=== PATIENT | male | born 1960 | race Two or more races ===

== ENCOUNTER 2017-05-08 06:28 | Inpatient (IN) | payer OTHER ==
[~2017-05-08] VITALS: Ht 177.8 cm; Wt 95.3 kg
[2017-05-08 08:00] VITALS: BP 126/72
--- NOTE | 2017-05-08 08:00 | NUR ---
MS 2 RN AM ADMITTING NOTES ADMITTED PT FROM DAY SX AND RECEIVED REPORT FROM DEON,A P SUPERVISOR.PT IS ALERT AND ORIENTED X4.VERBALLY RESPONSIVE IN [place] AND [place].AMBULATES AD JACLYN.WITH SKIN INTACT.DENIES ANY SOB IN ROOM AIR AND PAIN.IV H/L INTACT TO LT HAND G 18.INSTRUCTED TO REMAIN NPO FOR PENDING SX :LT TOTAL KNEE ARTHROPLASTY BY DR BLUM.ALL CONSENTS HAS BEEN SIGNED.FAMILY AT BEDSIDE.CALL LIGHT PLACED WITHIN REACH.
[2017-05-08] MEDS ORDERED: TRANEXAMIC ACID 1,500 MG in IV NS 0.9% 50 ML IV ONE (08:30)
[2017-05-08] MEDS ORDERED: BACITRACIN 50000 UNITS/VIAL ONE (10:57)
[2017-05-08] MEDS ORDERED: BUPIVACAINE 0.25% 75 MG/30 ML VIAL ONE ×2 (10:58→13:59)
[2017-05-08] MEDS ORDERED: MORPHINE SULFATE INJ 4 MG/ML DISP.SYRIN ONE ×2 (10:58→16:15)
[2017-05-08] MEDS ORDERED: KETOROLAC TROMETHAMINE INJ 30 MG/ML VIAL ONE ×2 (10:58→16:00)
--- NOTE | 2017-05-08 11:38 | NUR ---
PT BROUGHT TO O.R FOR LT TOTAL KNEE ARTHROPLASTY WITH STABLE V/S.DENIES ANY PAIN OR DISTRESS.
[2017-05-08] MEDS ORDERED: CELECOXIB 100 MG CAPSULE ONE (11:49)
[2017-05-08] MEDS ORDERED: ACETAMINOPHEN 325 MG TABLET ONE (11:49)
[2017-05-08] MEDS ORDERED: oxyCODONE HCL SR 10MG TAB.SR.12H PO ONE (12:00)
[2017-05-08] MEDS ORDERED: oxyCODONE IR immediate release 5 MG ONE (15:56)
[2017-05-08] MEDS ORDERED: MIDAZOLAM HCL 2 MG/2ML VIAL ONE (16:21)
[2017-05-08] MEDS ORDERED: ASPIRIN 600 MG/SUPP.RECT RC ONE (16:30)
[2017-05-08] MEDS ORDERED: oxyCODONE IR immediate release 5 MG PO ONE (16:30)
[2017-05-08] MEDS ORDERED: KETOROLAC TROMETHAMINE INJ 30 MG/ML VIAL IV ONE (16:30)
--- NOTE | 2017-05-08 17:00 | NUR ---
RN MS NOTES PATIENT BACK ON UNIT IN STABLE CONDITION, AWAKE ALERT AND VERBALLY RESPONSIVE, RESPIRATIONS EVEN AND UNLABORED, OLMOS CATHETER INTACT AND DRAINING WELL. LEFT LEG IMMOBILIZER INTACT, DRESSING IS DRY, DVT PUMPS IN PLACE. IV TO LEFT HAND INTACT AND PATENT, NO REDNESS , NO INFILTRATION. IVF FLUIDS RUNNING ORDERED. SAFETY MEASURES IN PLACE, CALL LIGHT KEPT WITH REACH , FAMILY AT BEDSIDE.
[2017-05-08] MEDS ORDERED: BISACODYL SUPP (10 MG) 10 MG/SUPP.RECT SUPP.RECT RC PRN (17:30)
[2017-05-08] MEDS ORDERED: HYDROMORPHONE 1 MG/1 ML DISP.SYRIN IV PRN (17:30)
[2017-05-08] MEDS ORDERED: ZOLPIDEM TARTRATE 5 MG TABLET PO PRN (17:30)
[2017-05-08] MEDS ORDERED: DOCUSATE SODIUM 100 MG CAPSULE PO PRN (17:30)
[2017-05-08] MEDS ORDERED: ACETAMINOPHEN 325 MG TABLET PO PRN (17:30)
--- NOTE | 2017-05-08 17:30 | NUR ---
RN NOTES. PATIENT ARRIVED TO UNIT FROM OR S/P LEFT TOTAL KNEE ARTHROPLASTY WITH STABLE VITAL SIGNS WITHIN NORMAL LIMITS, WITH LEFT LOWER EXTREMITY IMMOBILIZER AND DVT PUMPS IN PLACE, F/C INTACT DRAINING WELL, URINE YELLOW, THE FOLLOWING MEDICATIONS WERE ADMINISTERED IN OR TRANEXAMIC ACID IV,OXYCONTIN 10MG, TORADOL 30MG,OXYCODONE 5MG.LEFT HAND 18 GAUGE IV INTACT,IVF RUNNING ORDERED,NO REDNESS OR INFILTRATION PRESENT TO SITE, SAFETY MEASURES IN PLACE, REORIENTED TO ROOM WITH CALL LIGHT KEPT WITHIN REACH.
--- NOTE | 2017-05-08 18:00 | NUR ---
PATIENT IS AWAKE ALERT AND EATING WITH NO DIFFICULTIES.
[2017-05-08] MEDS: IV D5/0.45 NACL 1,000 ML IV PRN (18:56)
[2017-05-08] MEDS: HYDROMORPHONE INJ 2 MG/ML DISP.SYRIN IV PRN (18:59)
--- NOTE | 2017-05-08 19:00 | NUR ---
RN NOTES RECEIVE PT IN BED A/O X3, NO S/S OF DISTRESS, STABLE, SAFETY MEASURES IN PLACE, CALL LIGHT WITHIN REACH, WILL CONTINUE TO MONITOR.
--- NOTE | 2017-05-08 19:04 | NUR ---
RN MS CLOSING NOTES. PATIENT AWAKE ALERT VERBALLY RESPONSIVE, BREATHING EVEN AND UNLABORED, VITAL SIGNS WNL, EGGCRATE HEEL PROTECTORS INTACT, DVT PUMPS INTACT, IVF FLOWING WELL,PATIENT ATE WELL 100% WITH NO COMPLICATIONS, OLMOS CATHETER INTACT AND DRAINING WELL, URINE YELLOW, SAFETY MEASURES IN PLACE , CALL LIGHT KEPT WITHIN REACH.
[2017-05-08 20:00] VITALS: BP 113/67
[2017-05-08] MEDS: CEFAZOLIN SODIUM 1 GM in IV SODIUM CHLORIDE 0.9% 50 ML IV SCH (21:34)
[2017-05-09] MEDS: KETOROLAC TROMETHAMINE INJ 30 MG/ML VIAL IV SCH ×5 (00:08→22:41)
[2017-05-09] MEDS: ONDANSETRON HCL/PF 4 MG/2 ML VIAL IVP SCH ×4 (00:08→16:03)
[2017-05-09] MEDS: CEFAZOLIN SODIUM 1 GM in IV SODIUM CHLORIDE 0.9% 50 ML IV SCH (04:17)
[2017-05-09] MEDS: IV D5/0.45 NACL 1,000 ML IV PRN ×2 (06:07→18:41)
--- NOTE | 2017-05-09 06:32 | NUR ---
MS RN NOTES PT ASLEEP COMFORTABLY IN BED AND EASILY AWAKEN HEAD OF BED ELEVATED FOR BETTER LUNG EXPANSION AND GOOD CIRCULATION. TOLERATING ROOM AIR 98% NOT IN RESPIRATORY DISTRESS. . NO COMPLAINS OF PAIN. STABLE CONDITION. HEEL PROTECTOR INTACT.F/C DRAINING YELLOW VIA GRAVITY WITH NO SEDIMENTS NO HEMATURIA NO CLOUDINESS. ASSISTED REPOSITION Q2H PRN. AFEBRILE. NO ACUTE CHANGES THROUGHOUT THE SHIFT. PT KEPT CLEAN AND DRY AND COMFORT. NURSING CARE RENDERED. NEEDS ATTENDED AND ANTICIPATED. GOOD SKIN CARE PROVIDED. ON LOW BED TO ENSURE SAFETY, CALL LIGHT WITHIN REACH, WILL ENDORSE TO THE NEXT SHIFT CONTINUE PLAN OF CARE
[2017-05-09 07:03] LABS: BASOPHILS # (AUTO) 0.1 /CMM (0.0-0.2); BASOPHILS % (AUTO) 0.6 % (0.0-2.0); EOSINOPHILS % (AUTO) 0.1 % (0.0-6.0); HEMATOCRIT 35 % (39-51); HEMOGLOBIN 12.1 g/dL (13.5-17.5); LYMPHOCYTES # (AUTO) 0.9 /CMM (0.8-4.8); LYMPHOCYTES % (AUTO) 10.7 % (20.0-44.0); MEAN CORPUSCULAR HGB CONC 35 g/dl (31.0-36.0); MEAN CORPUSCULAR VOLUME 92 fL (80-96); MONOCYTES # (AUTO) 0.5 /CMM (0.1-1.30); MONOCYTES % (AUTO) 5.9 % (2.0-12.0); NEUTROPHILS # (AUTO) 7.3 /CMM (1.8-8.9); NEUTROPHILS % (AUTO) 82.7 % (43.0-81.0); PLATELET COUNT (AUTO) 153 /CMM (150-450); RED BLOOD CELL COUNT(AUTO) 3.79 MIL/uL (4.5-6.0); WHITE BLOOD COUNT (AUTO) 8.9 K/uL (4.3-11.0)
--- NOTE | 2017-05-09 07:26 | NUR ---
MS RN OPENING NOTES RECEIVED PATIENT IN STABLE CONDITION. IN NO APPARENT DISTRESS. BEDSIDE RAILS ARE UPX2. BED IS LOCKED AND LOWERED. CALL LIGHT IS WITHIN REACH. IV LINE IS INTACT AND PATENT. PATIENT IS RESTING IN BED. WILL CONTINUE TO MONITOR.
[2017-05-09 08:00] VITALS: BP 116/70
[2017-05-09 08:02] LABS: CALCIUM, SERUM 7.2 mg/dL (8.5-10.1); POTASSIUM 3.9 mmol/L (3.5-5.1)
[2017-05-09] MEDS: CELECOXIB 100 MG CAPSULE PO SCH ×2 (08:18→20:29)
[2017-05-09] MEDS: ASPIRIN 325 MG TABLET PO SCH ×2 (08:18→16:04)
[2017-05-09] MEDS ORDERED: MELO7.5T12 PO (08:32)
[2017-05-09] MEDS ORDERED: TRAM50TA2 PO (08:32)
[2017-05-09 15:31] VITALS: BP 104/60
[2017-05-09] MEDS: HYDROCODONE/APAP 5/325MG 1 EACH TABLET PO PRN (17:44)
--- NOTE | 2017-05-09 18:30 | NUR ---
MS RN CLOSING NOTES PATIENT IS IN STABLE CONDITION. IN NO APPARENT DISTRESS. BEDSIDE RAILS ARE UPX2. IV LINE IS INTACT AND PATENT. BED IS LOCKED AND LOWERED. ALL NEEDS WERE MET. CALL LIGHT IS WITHIN REACH. WILL ENDORSE CARE TO TOOL AND DIE DESIGNER NURSE FOR NETO.
--- NOTE | 2017-05-09 19:15 | NUR ---
RN OPENING NOTES PT AWAKE AND RESTING. FAMILY AT BEDSIDE. PT S/P LEFT TOTAL KNEE ARTHROPLASTY (05/08/17). NO COMPLAINTS OF PAIN, SOB, OR DISTRESS AT THIS TIME. PT HAS A OLMOS CATHETER INTACT AND DRAINING WELL. PT HAS A LEFT HAND #18 IV RUNNING D5 1/2NS @75 ML/HR TOLERATING WELL. SAFETY PRECAUTIONS IN PLACE. BED IN LOW, LOCKED POSITION, X2 SIDE RAILS UP, CALL LIGHT WITHIN REACH. WILL CONTINUE TO MONITOR.
[2017-05-09 20:00] VITALS: BP 115/75
[2017-05-10] MEDS: KETOROLAC TROMETHAMINE INJ 30 MG/ML VIAL IV SCH ×3 (05:27→16:00)
--- NOTE | 2017-05-10 06:58 | NUR ---
RN CLOSING NOTES PT RESTING IN BED. FAMILY AT BEDSIDE. PT S/P LEFT TOTAL KNEE ARTHROPLASTY (05/08/17). NO COMPLAINTS OF PAIN, SOB, OR DISTRESS AT THIS TIME. ALL PT NEEDS MET OVERNIGHT. PT HAS A OLMOS CATHETER INTACT AND DRAINING WELL OUTPUT WAS 1750. PT HAS A LEFT HAND #18 IV RUNNING D5 1/2NS @75 ML/HR TOLERATING WELL. SAFETY PRECAUTIONS IN PLACE. BED IN LOW, LOCKED POSITION, X2 SIDE RAILS UP, CALL LIGHT WITHIN REACH. WILL ENDORSE TO DAY SHIFT FOR CONTINUITY OF CARE.
--- NOTE | 2017-05-10 07:24 | NUR ---
MS RN OPENING NOTES RECEIVED PATIENT IN STABLE CONDITION. RESTING IN BED IN NO APPARENT DISTRESS. BEDSIDE RAILS ARE UPX2. BED IS LOCKED AND LOWERED. CALL LIGHT IS WITHIN REACH. IV LINE IS INTACT AND PATENT. WILL CONTINUE TO MONITOR.
[2017-05-10 08:00] VITALS: BP 125/78
[2017-05-10] MEDS: CELECOXIB 100 MG CAPSULE PO SCH ×2 (09:03→22:13)
[2017-05-10] MEDS: HYDROCODONE/APAP 5/325MG 1 EACH TABLET PO PRN (09:03)
[2017-05-10] MEDS: ASPIRIN 325 MG TABLET PO SCH ×2 (09:03→16:00)
[2017-05-10] MEDS: IV D5/0.45 NACL 1,000 ML IV PRN (09:07)
[2017-05-10] MEDS: HYDROMORPHONE INJ 2 MG/ML DISP.SYRIN IV PRN ×2 (11:23→19:50)
[2017-05-10 16:00] VITALS: BP 113/74
--- NOTE | 2017-05-10 16:02 | NUR ---
UNABLE TO SCAN ASPIRIN BARCODE. PACKAGING WAS TOO FADED. ADMINISTERED. ASPIRIN 325MG.
--- NOTE | 2017-05-10 18:43 | NUR ---
MS RN CLOSING NOTES PATIENT IS RESTING IN BED IN STABLE CONDITION. IN NO APPARENT DISTRESS. BEDSIDE RAILS ARE UPX2. BED IS LOCKED AND LOWERED. CALL LIGHT IS WITHIN REACH. ALL NEEDS WERE MET. IV LINE IS INTACT AND PATENT. WILL ENDORSE CARE TO FLOAT TENDER NURSE FOR NETO.
--- NOTE | 2017-05-10 19:15 | NUR ---
RN OPENING NOTES PT RESTING IN BED. FAMILY AT BEDSIDE. PT S/P LEFT TOTAL KNEE ARTHROPLASTY (05/08/17). PT COMPLAINS OF PAIN WILL ADDRESS. PT HAS A LEFT HAND #18 IV RUNNING D5 1/2NS @75 ML/HR TOLERATING WELL. SAFETY PRECAUTIONS IN PLACE. BED IN LOW, LOCKED POSITION, X2 SIDE RAILS UP, CALL LIGHT WITHIN REACH. WILL CONTINUE TO MONITOR.
--- NOTE | 2017-05-10 19:40 | NUR ---
RN NOTES PT COMPLAINS OF PAIN LEVEL 9/10. WILL ADMINISTER PRN 1MG DILAUDID AND CONTINUE TO MONITOR.
[2017-05-10 20:00] VITALS: BP 120/80
[2017-05-11] MEDS: IV D5/0.45 NACL 1,000 ML IV PRN ×2 (02:55→20:22)
--- NOTE | 2017-05-11 06:37 | NUR ---
RN CLOSING NOTES PT RESTING IN CHAIR AT BEDSIDE. FAMILY AT BEDSIDE. PT S/P LEFT TOTAL KNEE ARTHROPLASTY (05/08/17). PAIN MANAGEMENT ADDRESSED OVERNIGHT. PT HAS A LEFT HAND #18 IV RUNNING D5 1/2NS @75 ML/HR TOLERATING WELL. ALL PT NEEDS MET. SAFETY PRECAUTIONS IN PLACE. BED IN LOW, LOCKED POSITION, X2 SIDE RAILS UP, CALL LIGHT WITHIN REACH. WILL ENDORSE TO DAY SHIFT NURSE FOR CONTINUITY OF CARE.
[2017-05-11 08:00] VITALS: BP 123/78
--- NOTE | 2017-05-11 08:00 | NUR ---
rn notes Received patient sitting in the chair, a/o x4, patient has no respiratory distress, v/s stable, patient refused pain medication at this time, iv line on left hand ns at 75 ml/hr. needs attended and anticipated, call light within to reach. safety precaution maintained all the time. patient has a brace on left leg. continued monitoring.
[2017-05-11] MEDS: ASPIRIN 325 MG TABLET PO SCH ×2 (08:35→17:34)
[2017-05-11] MEDS: CELECOXIB 100 MG CAPSULE PO SCH ×2 (08:35→20:16)
[2017-05-11] MEDS: HYDROCODONE/APAP 5/325MG 1 EACH TABLET PO PRN (08:36)
--- NOTE | 2017-05-11 08:36 | NUR ---
RN NOTES ADMINISTERED NARCO 5/325 MG PO PRN FOR LEFT KNEE PAIN 08/27, PER PATIENT REQUEST, V/S TAKEN BP-123/78, P86, CONTINUED MONITORING.
--- NOTE | 2017-05-11 10:00 | NUR ---
rn notes pain medication were administered for pain effective. patient with PT at this time continued monitoring.
[2017-05-11] MEDS: HYDROMORPHONE INJ 2 MG/ML DISP.SYRIN IV PRN (12:06)
--- NOTE | 2017-05-11 12:06 | NUR ---
RN NOTES ADMINISTERED DILAUDID 1 MG/ML IV PUSH LEFT KNEE PAIN 8/10 PER PATIENT REQUEST, BP-145/ 79, P-89, CONTINUED MONITORING, ENCOURAGED PATIENT TO USE SPIROMETER, ALSO ENCOURAGED TO INCREASE FLUID INTAKE, NEXT TO THE BED.
--- NOTE | 2017-05-11 12:52 | NUR ---
RN NOTES PATIENT RESTING IN THE BED, MEDICATION WERE ADMINISTERED FOR PAIN EFFECTIVE. CALL LIGHT WITHIN TO REACH, CONTINUED MONITORING.
[2017-05-11 16:00] VITALS: BP 125/83
--- NOTE | 2017-05-11 18:30 | NUR ---
RN NOTES PATIENT IN THE BED. NO ACUTE DISTRESS, V/S STABLE, SCHEDULED MEDICATION ADMINISTERED, V/S STABLE, NO C/O PAIN AT THIS TIME. NEXT TO THE BED. CONTINUED MONITORING. ENDORSED ONCOMING NURSE FOR NETO.
--- NOTE | 2017-05-11 19:30 | NUR ---
MS RN OPENING NOTES: PATIENT SITTING ON CHAIR, AOX4, ON ROOM AIR, BREATHING EVEN AND UNLABORED. APPEARS CALM AND IN NO DISTRESS, BUT DOES STATE THAT HE HAS 6/10 PAIN OVER LEFT KNEE ONLY WHILE AMBULATING. ACCDG TO PATIENT, HE HAS JUST FINISHED USING HIS CPM MACHINE. PIV OVER LEFT HAND G 18 INTACT AND PATENT TO FLUSH. DRESSING OVER LEFT KNEE INTACT AND CLEAN, NO BLEEDING NOTED. PROVIDED FOR COMFORT AND SAFETY. BED IN LOWEST AND LOCKED POSITION, SIDERAILS UP X 3, CALL LIGHT WITHIN REACH. WILL CONT TO MONITOR.
[2017-05-11 20:00] VITALS: BP 143/92
[2017-05-12] MEDS: HYDROCODONE/APAP 5/325MG 1 EACH TABLET PO PRN ×3 (01:21→16:00)
--- NOTE | 2017-05-12 01:21 | NUR ---
RN NOTES: PATIENT COMPLAINED OF 7/10 PAIN OVER LEFT KNEE. ADMINISTERED NORCO 5-325 MG PO. ASSISTED PATIENT TO COMFORTABLE POSITION, PLACED ICE PACKS OVER KNEE. WILL CONT TO MONITOR.
--- NOTE | 2017-05-12 06:32 | NUR ---
MS RN NOTES: PATIENT IN BED, AOX4, ON ROOM AIR, BREATHING EVEN AND UNLABORED. APPEARS CALM AND IN NO DISTRESS, BUT STILL COMPLAINS OF INTERMITTENT PAIN OVER LEFT KNEE WHICH WORSENS WHEN HE MOVES. PIV OVER L HAND G 18 INTACT AND INFUSING WELL WITH D5 1/2 NS RUNNING AT 75 ML/HR. PROVIDED FOR COMFORT AND SAFETY. BED IN LOWEST AND LOCKED POSITION, SIDERAILS UP X 3, CALL LIGHT WITHIN REACH. WILL ENDORSE TO AM RN FOR NETO.
[2017-05-12 08:00] VITALS: BP 125/85
--- NOTE | 2017-05-12 08:00 | NUR ---
M/S RN - AM Assessment Patient awake, A/O x 4, denies pain on the left knee incision site, tolerating room air, remain afebrile. Skin is intact except for left knee surgical incision, POD#4 Left knee Arthroplasty. Left knee dressing c/d/i without drainage, discharge, surrounding erythema, or excess warmth. Skin on BLE is warm to touch, negative calf tenderness, no edema, sensation on both lower ext are intact. Patient refused IVF for now, stated "I am drinking enough fluid." Left hand wrist saline lock with no signs of infiltration. Fall precautions maintained. All needs anticipated and met. Will continue with current plan of care
[2017-05-12] MEDS: ASPIRIN 325 MG TABLET PO SCH ×2 (08:14→16:00)
[2017-05-12] MEDS: CELECOXIB 100 MG CAPSULE PO SCH (08:14)
[2017-05-12 16:00] VITALS: BP 129/65
--- NOTE | 2017-05-12 19:00 | NUR ---
M/S RN - Discharge Patient discharged to home with home health in stable condition. Reviewed discharge instructions with the pt and he verbalized full understanding of all teachings including f/u care with Dr. Gómez in 2 weeks. All belongings with the pt and he denies any missing items. VSS, denies left knee pain, no c/o SOB. Heplock removed on the left hand with catheter tip intact, no redness and no swelling noted at the site. Left knee dressing changed, photo taken, incision clean, no redness, no drainage seen. Discharge papers signed and copy was provided per protocol. Written prescription given. Patient noted with 2 written prescriptions, one from surgery and hospitalist but the same medication. Patient was given the recent prescription. Accompanied to the lobby via wheelchair and transported by private car.
== END 2017-05-12 19:00 | disposition home health service (06) | DRG 470 ==
LOC: DS 06:28 → MED 10:13
PROVIDERS: ADMIT Orthopaedic Surgery; ATTEND Orthopaedic Surgery
PROC: 0SRD0J9 Replacement of Left Knee Joint with Synthetic Substitute, Cemented, Open Approach (ICD-10-PCS; principal; 2017-05-08 12:51)
DX: M17.12 Unilateral primary osteoarthritis, left knee (principal); E66.9 Obesity, unspecified; Z68.30 Body mass index [BMI] 30.0-30.9, adult
CPT/HCPCS: 36415; 73560-TC; 80048-TC; 85025-TC; 86850-TC; 86921-TC; 87081-TC; 88305-TC; 88311-TC; 97110-TC; 97116-TC; 97530-TC; 97760-TC; A4216; A4217; A6402; C1713; J0690; J1100; J1170; J1885; J2250; J2270; J2405; J2704; J3490; Z7610